=== PATIENT | female | born 1960 | race Caucasian/White ===

== ENCOUNTER 2017-08-04 11:15 | Emergency (ER) | payer MEDICAID ==
[2015-04-15 12:13] VITALS: Wt 60.3 kg
[~2017-08-04 11:15] MED LIST: ALBU2.5V36 IH; ALBU5SOL17 NEB; ALBU8.5H IH; AMLO-96 PO; AZIT-18 PO; BENZ100C4 PO; BUDE10.2 INH; BUSP15TA69 PO; CIPR-214 PO; CIPR-344 PO; CITA-145 PO; CYCL-277 PO; CYCL10TA29 PO; DIAZ-308 PO; DOCU-416 PO; FAMO20TA28 PO; GABA-490 PO; GUAI120L3 PO; GUAI600T57 PO; HYDR-4309 PO; HYDR2TAB74 PO; HYDR50CA47 PO; IBUP800T37 PO; IPRA4AER IH; KET10 PO; LAMO100T5 PO; LAMO50TA PO; LEVO-85 PO; LEVO750T27 PO; LISI2.5T60 PO; LITH300T18 PO; LOR5/325 PO; LORA-629 PO; METF-411 PO; METF-421 PO; NITR-105 PO; ONDA4TAB PO; OXYC-865 PO; PER PO; POLY17PO25 PO; PRED-1 PO; PRED20TA6 PO; PROM-110 PO; SERT-1 PO; SERT20OR6 PO; SULF-198 PO; TAMS0.4C25 PO; TRAM-420 PO; TRAZ-163 PO; [UNRECOGNIZED DRUG - OTHER]
--- NOTE | 2017-08-04 11:17 | ER Report ---
History and Physical Time Seen By MD: 11:17 Hx. of Stated Complaint: rash HPI/ROS 57 year old female received bug bites after staying in a local hotel x 10 days . bites raised itchy to bilateral arms and right lower extremity Remainder of the 14 system rev: Yes Allergies: Coded Allergies: coconut oil (Verified Allergy, Severe, Anaphylaxis, 10/19/15) Penicillins (Verified Allergy, Unknown, 10/19/15) guanfacine (Verified Allergy, Unknown, 10/19/15) naproxen (Verified Allergy, Unknown, 08/04/17) Uncoded Allergies: COCONUT (Allergy, Severe, ANAPHYLAXIS, 04/10/15) Home Meds Active Scripts Prednisone (PREDNISONE) 20 Mg Tablet, 40 MG PO DAILY for 5 Days, #10 TAB Prov:PO MUNROE 08/04/17 Hydrocortisone 2.5% Oint (HYDROCORTISONE 2.5% OINT) 453.6 Gm Oint...g., 453.6 GM TP BID for 7 Days, #1 TUBE Prov:PO MUNROE 08/04/17 Reported Medications Metformin Hcl (METFORMIN HCL) 500 Mg Tablet, 1 TAB PO BID, TAB 10/19/15 Albuterol Sulfate (ALBUTEROL SULFATE) 5 Mg/1 Ml Solution, 2.5 MG NEB 3-4XD 04/10/15 Citalopram Hydrobromide (CITALOPRAM HBR) 20 Mg Tablet, 40 MG PO QDAY, #5 TAB 04/10/15 Lamotrigine (LAMOTRIGINE) 100 Mg Tab.er.24, 100 MG PO QDAY 09/06/14 Budesonide/Formoterol Fumarate (SYMBICORT 160-4.5 MCG INHALER) 10.2 Gm Inh, 10.2 GM INH BID, INH 08/23/14 Amlodipine Besylate (AMLODIPINE BESYLATE) 5 Mg Tablet, 1 TAB PO QDAY, TAB 07/30/14 Discontinued Reported Medications Ciprofloxacin Hcl (CIPROFLOXACIN HCL) 500 Mg Tablet, 500 MG PO Q12H, #14 TAB 10/19/15 Tamsulosin Hcl (FLOMAX) 0.4 Mg Cap.er.24h, 0.4 MG PO BID, CAP 04/20/15 Discontinued Scripts Hydrocodone Bit/Acetaminophen (NORCO 5-325 TABLET) 1 Each Tablet, 1 EACH PO Q4- 6H Y for PAIN, #12 TAB Prov:PAULINA MCGEE IRRIGATION SYSTEM INSTALLER 10/19/15 Past Medical/Surgical History diabetic Hx Smoking: Yes (1ppd) Smoking Status: Current: Every Day Smoker Hx Substance Use Disorder: No Hx Alcohol Use: No Constitutional Vital Sign - Last 24 Hours 08/04/17 08/04/17 11:22 11:55 Temp 97.6 Pulse 106 97 Resp 16 16 B/P (MAP) 149/99 139/99 (112) Pulse Ox 93 93 O2 Delivery Room Air Room Air Physical Exam 57 year old female alert and oriented nad, shira, tm non reddened, , throat non reddened hrr lungs cta, bug bites red raised tonia arms and right leg , friend in room has the same Medical Decision Making ED Course/Re-evaluation ED Course Was offered IM injection of Solu-Medrol refused this. She has allergic reactions to all injections did take 40 of by mouth prednisone home with prescriptions follow PCP Re-evaluation Ambulatory to ER no acute distress prednisone 40 mg given any Decision to Disposition Date: Aug 04, 2017 Decision to Disposition Time: 11:34 Depart Departure Latest Vital Signs Vital Signs Date Time Temp Pulse Resp B/P (MAP) Pulse Ox O2 Delivery O2 Flow Rate FiO2 08/04/17 11:55 97 16 139/99 (112) 93 Room Air 08/04/17 11:22 97.6 Impression: Primary Impression: Bed bug bite Condition: Improved Disposition: HOME OR SELF-CARE Referrals: [facility] 1 Week New Scripts Prednisone (PREDNISONE) 20 Mg Tablet 40 MG PO DAILY for 5 Days, #10 TAB Prov: PO MUNROE 08/04/17 Hydrocortisone 2.5% Oint (HYDROCORTISONE 2.5% OINT) 453.6 Gm Oint...g. 453.6 GM TP BID for 7 Days, #1 TUBE Prov: PO MUNROE 08/04/17 Patient Instructions: Insect Bite or Sting (ED) Additional Instructions: Take medications as prescribed follow-up with your primary care physician PO MUNROE Aug 04, 2017 11:17
[2017-08-04] MEDS ORDERED: methylPREDNIS SUCC 125 MG/2ML IM ONE (11:30)
[2017-08-04] MEDS ORDERED: diphenhydrAMINE 25 MG CAP PO ONE (11:30)
[2017-08-04] MEDS ORDERED: PRED20TA6 PO (11:36)
[2017-08-04] MEDS ORDERED: HYDR453.8 TP (11:36)
[2017-08-04] MEDS ORDERED: predniSONE 10 MG TAB PO ONE (11:40)
[2017-08-04] MEDS ORDERED: predniSONE 20 MG TAB PO ONE (11:45)
[2017-08-04 11:55] VITALS: BP 139/99
== END 2017-08-04 11:58 | disposition home or self-care (01) ==
LOC: ER 11:25
DX: S40.862A Insect bite (nonvenomous) of left upper arm, initial encounter (principal); S40.861A Insect bite (nonvenomous) of right upper arm, initial encounter; S80.861A Insect bite (nonvenomous), right lower leg, initial encounter; W57.XXXA Bitten or stung by nonvenomous insect and other nonvenomous arthropods, initial encounter
CPT/HCPCS: 99283; J7512

== ENCOUNTER 2017-11-13 17:40 | Emergency (ER) | payer MEDICAID ==
[2015-04-15 12:13] VITALS: Wt 63.5 kg
[~2017-11-13 17:40] MED LIST changes: +AMLO-111 PO; -AMLO-96 PO; +HYDR453.8 TP; -METF-411 PO; -METF-421 PO; +METF-450 PO; +METF-452 PO; -TRAZ-163 PO; +TRAZ100T31 PO
--- NOTE | 2017-11-13 17:45 | ER Report ---
History and Physical Time Seen By MD: 17:45 HPI/ROS CHIEF COMPLAINT: Cramping in the right leg HISTORY OF PRESENT ILLNESS: This is a 57-year-old female presents to the emergency department for cramping in the right leg. Patient states over the last week she's had increased cramps in her right leg, saw her urologist today, he suggested coming to the ED for further evaluation. Patient did have renal surgery about 2 years ago with removal of her left kidney due to cancer. Patient states that she was drinking lots of electrolyte-containing drinks, then recently stopped drinking those and started increasing her water intake. Patient denies any other concerns. No nausea or vomiting. No chest pain shortness of breath. No headaches. No rashes. REVIEW OF SYSTEMS: Constitutional: No fever, no chills. Eyes: No discharge. ENT: No sore throat. Cardiovascular: No chest pain, no palpitations. Respiratory: No cough, no shortness of breath. Gastrointestinal: No abdominal pain, no vomiting. Genitourinary: No hematuria. Musculoskeletal: As above. Skin: No rashes. Neurological: No headache. Allergies: Coded Allergies: coconut oil (Verified Allergy, Severe, Anaphylaxis, 11/13/17) Penicillins (Verified Allergy, Unknown, 11/13/17) guanfacine (Verified Allergy, Unknown, 11/13/17) naproxen (Verified Allergy, Unknown, 11/13/17) Uncoded Allergies: COCONUT (Allergy, Severe, ANAPHYLAXIS, 04/10/15) Home Meds Active Scripts Lorazepam (LORAZEPAM) 0.5 Mg Tablet, 0.5 MG PO Q4-6H, #6 TAB 0 Refills Prov:THERESA WHITE PRODUCTION REPRODUCTION MANAGER-BC 11/13/17 Hydrocortisone 2.5% Oint (HYDROCORTISONE 2.5% OINT) 453.6 Gm Oint...g., 453.6 GM TP BID for 7 Days, #1 TUBE Prov:PO MUNROE APRN-C 08/04/17 Reported Medications Metformin Hcl (METFORMIN HCL) 500 Mg Tablet, 1 TAB PO BID, TAB 10/19/15 Albuterol Sulfate (ALBUTEROL SULFATE) 5 Mg/1 Ml Solution, 2.5 MG NEB 3-4XD 04/10/15 Citalopram Hydrobromide (CITALOPRAM HBR) 20 Mg Tablet, 40 MG PO QDAY, #5 TAB 04/10/15 Lamotrigine (LAMOTRIGINE) 100 Mg Tab.er.24, 100 MG PO QDAY 09/06/14 Budesonide/Formoterol Fumarate (SYMBICORT 160-4.5 MCG INHALER) 10.2 Gm Inh, 10.2 GM INH BID, INH 08/23/14 Amlodipine Besylate (AMLODIPINE BESYLATE) 5 Mg Tablet, 1 TAB PO QDAY, TAB 07/30/14 Discontinued Scripts Prednisone (PREDNISONE) 20 Mg Tablet, 40 MG PO DAILY for 5 Days, #10 TAB Prov:PO MUNROE Luz Marina LEMUS 08/04/17 Past Medical/Surgical History The patient has a past medical and surgical history of seizures, heart murmur, irregular heartbeat, hypertension, COPD, tuberculosis as a child, COPD, history of self catheters, left nephrectomy secondary to cancer, osteoarthritis, back pain, degenerative joint disease, wears glasses, [id number] diabetic, depression, anxiety, C-sections, appendectomy, left pinky finger surgery. Reviewed Nurses Notes: Yes Hx Smoking: Yes (1ppd) Smoking Status: Current: Every Day Smoker Hx Substance Use Disorder: No Hx Alcohol Use: No Constitutional Vital Sign - Last 24 Hours 11/13/17 11/13/17 11/13/17 11/13/17 17:45 17:47 17:55 18:00 Temp 98.1 Pulse 101 119 Resp 14 B/P (MAP) 144/84 144/84 (104) 156/84 (108) Pulse Ox 94 95 O2 Delivery Room Air 11/13/17 11/13/17 11/13/17 11/13/17 18:10 18:25 18:30 18:40 Pulse ? 92 B/P (MAP) ???/??? (8205) Pulse Ox 94 94 11/13/17 11/13/17 11/13/17 11/13/17 18:55 19:02 19:10 19:25 Pulse 87 87 93 B/P (MAP) 147/70 (95) Pulse Ox 98 96 92 Physical Exam General Appearance: The patient is alert, has no immediate need for airway p rotection and no signs of toxicity. Eyes: Pupils equal and round no pallor or injection. ENT, Mouth: Mucous membranes are moist. Respiratory: There are no retractions, lungs are clear to auscultation. Cardiovascular: Regular rate and rhythm, systolic murmur, no clicks or rubs. Gastrointestinal: Abdomen is soft and non tender, no masses, bowel sounds normal. Neurological: Alert and oriented 4. Moving all extremities. Following all commands. No focal neuro deficits. Skin: Warm and dry, no rashes. Musculoskeletal: Neck is supple non tender. Extremities small, intermittent muscular movements in the right lateral lower leg. CMS intact. DIFFERENTIAL DIAGNOSIS: After history and physical exam differential diagnosis was considered for electrolyte imbalance, lumbar back strain and nerve root irritation. Medical Decision Making Data Points Result Diagram: 11/13/17 1813 11/13/17 1813 Laboratory Hematology Test 11/13/17 18:13 Red Blood Count 5.62 M/uL (4.17-5.56) Mean Corpuscular Volume 90.7 fL (80.0-96.0) Mean Corpuscular Hemoglobin 32.2 pg (26.0-33.0) Mean Corpuscular Hemoglobin Concent 35.4 g/dL (32.0-36.0) Red Cell Distribution Width 13.0 % (11.5-14.5) Mean Platelet Volume 8.3 fL (7.2-11.1) Neutrophils (%) (Auto) 58.1 % (39.4-72.5) Lymphocytes (%) (Auto) 34.4 % (17.6-49.6) Monocytes (%) (Auto) 5.3 % (4.1-12.4) Eosinophils (%) (Auto) 1.1 % (0.4-6.7) Basophils (%) (Auto) 1.1 % (0.3-1.4) Nucleated RBC Relative Count (auto) 0.0 /100WBC Neutrophils # (Auto) 5.9 K/uL (2.0-7.4) Lymphocytes # (Auto) 3.5 K/uL (1.3-3.6) Monocytes # (Auto) 0.5 K/uL (0.3-1.0) Eosinophils # (Auto) 0.1 K/uL (0.0-0.5) Basophils # (Auto) 0.1 K/uL (0.0-0.1) Nucleated RBC Absolute Count (auto) 0.00 K/uL Sodium Level 139 mmol/L (137-145) Potassium Level 3.9 mmol/L (3.5-5.0) Chloride Level 103 mmol/L (98-107) Carbon Dioxide Level 22 mmol/L (22-31) Blood Urea Nitrogen 12 mg/dl (7-18) Creatinine 1.10 mg/dl (0.52-1.04) Glomerular Filtration Rate Calc 51.0 Random Glucose 257 mg/dl (75-110) Calcium Level 9.6 mg/dl (8.4-10.2) Magnesium Level 1.7 mg/dl (1.7-2.2) Total Bilirubin 0.5 mg/dl (0.2-1.3) Aspartate Amino Transf (AST/SGOT) 23 U/L (0-35) Alanine Aminotransferase (ALT/SGPT) 35 U/L (0-56) Alkaline Phosphatase 97 U/L (0-126) Total Protein 7.5 g/dl (6.3-8.2) Albumin 4.1 g/dl (3.5-5.0) Chemistry Test 11/13/17 18:13 White Blood Count 10.2 k/uL (4.5-11.0) Red Blood Count 5.62 M/uL (4.17-5.56) Hemoglobin 18.1 g/dL (12.0-16.0) Hematocrit 51.0 % (34.0-47.0) Mean Corpuscular Volume 90.7 fL (80.0-96.0) Mean Corpuscular Hemoglobin 32.2 pg (26.0-33.0) Mean Corpuscular Hemoglobin Concent 35.4 g/dL (32.0-36.0) Red Cell Distribution Width 13.0 % (11.5-14.5) Platelet Count 332 K/uL (150-450) Mean Platelet Volume 8.3 fL (7.2-11.1) Neutrophils (%) (Auto) 58.1 % (39.4-72.5) Lymphocytes (%) (Auto) 34.4 % (17.6-49.6) Monocytes (%) (Auto) 5.3 % (4.1-12.4) Eosinophils (%) (Auto) 1.1 % (0.4-6.7) Basophils (%) (Auto) 1.1 % (0.3-1.4) Nucleated RBC Relative Count (auto) 0.0 /100WBC Neutrophils # (Auto) 5.9 K/uL (2.0-7.4) Lymphocytes # (Auto) 3.5 K/uL (1.3-3.6) Monocytes # (Auto) 0.5 K/uL (0.3-1.0) Eosinophils # (Auto) 0.1 K/uL (0.0-0.5) Basophils # (Auto) 0.1 K/uL (0.0-0.1) Nucleated RBC Absolute Count (auto) 0.00 K/uL Glomerular Filtration Rate Calc 51.0 Calcium Level 9.6 mg/dl (8.4-10.2) Magnesium Level 1.7 mg/dl (1.7-2.2) Total Bilirubin 0.5 mg/dl (0.2-1.3) Aspartate Amino Transf (AST/SGOT) 23 U/L (0-35) Alanine Aminotransferase (ALT/SGPT) 35 U/L (0-56) Alkaline Phosphatase 97 U/L (0-126) Total Protein 7.5 g/dl (6.3-8.2) Albumin 4.1 g/dl (3.5-5.0) ED Course/Re-evaluation Clinical Indication for ER IV: Hydration, IV Access ED Course The patient was admitted to room. History of physical obtained. Differential diagnoses were considered. An IV was started. A 1 L normal saline bolus was given. H&H 18.1 and 51.0, likely delusional given the patient's history. Creatinine 1.10. Blood sugar 257. Patient was given a 0.5 mg IV dose of lorazep am. Patient states she is feeling much better, the muscle spasms have stopped. Labs were reviewed with patient. Patient is very anxious to go home now, she states she is feeling much better. I did sent the patient home with a prescription in for Ativan for the muscle spasms, I also encouraged her to follow up with her primary care provider for reevaluation. Patient expresses understanding and was discharged home. Decision to Disposition Date: Nov 13, 2017 Decision to Disposition Time: 19:30 Depart Departure Latest Vital Signs Vital Signs Date Time Temp Pulse Resp B/P (MAP) Pulse Ox O2 Delivery O2 Flow Rate FiO2 9/27/18 19:25 93 92 11/13/17 19:02 147/70 (95) 11/13/17 17:45 98.1 14 Room Air Impression: Primary Impression: Leg muscle spasm Condition: Improved Disposition: HOME OR SELF-CARE New Scripts Lorazepam (LORAZEPAM) 0.5 Mg Tablet 0.5 MG PO Q4-6H, #6 TAB 0 Refills Prov: THERESA WHITE 11/13/17 Patient Instructions: Muscle Spasm (ED) Additional Instructions: You can take 1 Ativan every 4-6 hours as needed for the muscle cramping. This is a limited supply so be sure to follow-up with your primary care provider within one week for reevaluation. I would also encourage her to follow up with [facility] to see if the root cause of the muscle spasms are related to the lower back. Be sure to drink plenty of water. Plenty of rest. Return to the emergency department for any other concerns or worsening symptoms. Problem Qualifiers Primary Impression: Leg muscle spasm Laterality: right Qualified Codes: M62.838 - Other muscle spasm THERESA WHITE-BC Nov 13, 2017 17:45
[2017-11-13] MEDS ORDERED: NS(*) 0.9% 1000 ML BAG 1,000 ML IV ONE (18:00)
[2017-11-13 18:19] LABS: PLATELET COUNT, AUTOMATED 332 K/uL (150-450)
[2017-11-13] MEDS ORDERED: LORazepam 2 MG/ML VIAL IVP ONE (18:40)
[2017-11-13 19:02] VITALS: BP 147/70
[2017-11-13] MEDS ORDERED: LORA-630 PO (19:32)
== END 2017-11-13 19:41 | disposition home or self-care (01) ==
LOC: ER 17:54
DX: M62.838 Other muscle spasm (principal)
CPT/HCPCS: 83735; 85025; 96374; 96375; 99284; J2060; J7030; 82040; 82247; 82310; 82374; 82435; 82565; 82947; 84075; 84132; 84155; 84295; 84450; 84460; 84520; 96361

== ENCOUNTER 2018-03-05 16:44 | Emergency (ER) | payer MEDICAID ==
[2015-04-15 12:13] VITALS: Wt 58.1 kg
[~2018-03-05 16:44] MED LIST changes: -AMLO-111 PO; +AMLO-125 PO; -HYDR-4309 PO; +HYDR-653 PO; +LORA-630 PO
--- NOTE | 2018-03-05 16:56 | ER Report ---
History and Physical Time Seen By MD: 16:55 HPI/ROS CHIEF COMPLAINT: Syncope HISTORY OF PRESENT ILLNESS: This is a 57-year-old female who presents to the emergency department for syncope. Patient states that she is concerned her blood pressure is high, she also had complaints of 2 syncopal episodes today, with "seizure-like activity", however these events happened this morning. Patient states that she also has had a headache for the past 3 or 4 days, she's also been heating the inside of her house with propane for the past 5 days. She has had chills, no chest pain, no shortness of breath. No nausea or vomiting. No fevers. No dysuria or diarrhea. Patient also states that she feels her blood pressure is elevated due to increased stress. REVIEW OF SYSTEMS: Constitutional: No fever, no chills. Eyes: No discharge. ENT: No sore throat. Cardiovascular: No chest pain, no palpitations. Respiratory: No cough, no shortness of breath. Gastrointestinal: No abdominal pain, no vomiting. Genitourinary: No hematuria. Musculoskeletal: No back pain. Skin: No rashes. Neurological: As above. Allergies: Coded Allergies: coconut oil (Verified Allergy, Severe, Anaphylaxis, 03/05/18) Penicillins (Verified Allergy, Unknown, 03/05/18) guanfacine (Verified Allergy, Unknown, 03/05/18) naproxen (Verified Allergy, Unknown, 03/05/18) Uncoded Allergies: COCONUT (Allergy, Severe, ANAPHYLAXIS, 04/10/15) Home Meds Active Scripts Metaxalone (SKELAXIN) 800 Mg Tablet, 800 MG PO TID, #12 TAB 0 Refills Prov:THERESA WHITE CLINIC PHYSICIAN-BC 03/05/18 Reported Medications Tamsulosin Hcl (FLOMAX) 0.4 Mg Cap.er.24h, 0.4 MG PO, CAP 03/05/18 Metformin Hcl (METFORMIN HCL) 500 Mg Tablet, 1 TAB PO BID, TAB 10/19/15 Discontinued Reported Medications Albuterol Sulfate (ALBUTEROL SULFATE) 5 Mg/1 Ml Solution, 2.5 MG NEB 3-4XD 04/10/15 Citalopram Hydrobromide (CITALOPRAM HBR) 20 Mg Tablet, 40 MG PO QDAY, #5 TAB 04/10/15 Lamotrigine (LAMOTRIGINE) 100 Mg Tab.er.24, 100 MG PO QDAY 09/06/14 Budesonide/Formoterol Fumarate (SYMBICORT 160-4.5 MCG INHALER) 10.2 Gm Inh, 10.2 GM INH BID, INH 08/23/14 Amlodipine Besylate (AMLODIPINE BESYLATE) 5 Mg Tablet, 1 TAB PO QDAY, TAB 07/30/14 Discontinued Scripts Lorazepam (LORAZEPAM) 0.5 Mg Tablet, 0.5 MG PO Q4-6H, #6 TAB 0 Refills Prov:CHRISTOPHERTHERESA Luz Marina CLINIC PHYSICIAN-BC 11/13/17 Hydrocortisone 2.5% Oint (HYDROCORTISONE 2.5% OINT) 453.6 Gm Oint...g., 453.6 GM TP BID for 7 Days, #1 TUBE Prov:PO MUNROE APRN-C 08/04/17 Past Medical/Surgical History The patient has a past medical and surgical history of seizures, heart murmur, irregular heartbeat, hypertension, COPD, tuberculosis as a child, COPD, history of self catheters, left nephrectomy secondary to cancer, osteoarthritis, back pain, degenerative joint disease, wears glasses, [id number] diabetic, depression, anxiety, C-sections, appendectomy, left pinky finger surgery. Reviewed Nurses Notes: Yes Hx Smoking: Yes (1ppd) Smoking Status: Current: Every Day Smoker Hx Substance Use Disorder: No Hx Alcohol Use: No Constitutional Vital Sign - Last 24 Hours 03/05/18 03/05/18 03/05/18 03/05/18 16:49 16:49 17:00 17:00 Temp 97.9 Pulse 79 Resp 20 B/P (MAP) 154/74 (100) 154/74 139/81 (100) Pulse Ox 93 O2 Delivery Room Air O2 Flow Rate 2.0 03/05/18 03/05/18 03/05/18 03/05/18 17:14 17:15 17:44 17:45 Pulse 79 70 Resp 14 22 B/P (MAP) 139/96 (110) 146/80 (102) Pulse Ox 97 97 03/05/18 03/05/18 03/05/18 03/05/18 18:00 18:14 18:15 18:30 Pulse 65 Resp 30 B/P (MAP) 141/82 (101) 165/80 (108) 151/74 (99) Pulse Ox 99 03/05/18 18:35 Pulse 55 Resp 14 Pulse Ox 99 Physical Exam General Appearance: The patient is alert, has no immediate need for airway protection and no signs of toxicity. Eyes: Pupils equal and round no pallor or injection. ENT, Mouth: Mucous membranes are moist. Respiratory: There are no retractions, lungs are clear to auscultation. Cardiovascular: Regular rate and rhythm. Gastrointestinal: Abdomen is soft and non tender, no masses, bowel sounds normal. Neurological: Alert and oriented 4. Moving all extremities. Following all commands. No focal neuro deficits. Skin: Warm and dry, no rashes. Musculoskeletal: Neck is supple non tender. Extremities are nontender, nonswollen and have full range of motion. DIFFERENTIAL DIAGNOSIS: After history and physical exam differential diagnosis was considered for headache including but not limited to subarachnoid hemor rhage, Carbon monoxide exposure, migraine headache, tension headache and infectious causes such as meningitis, pharyngitis and sinusitis. Medical Decision Making Data Points Result Diagram: 03/05/18 1720 03/05/18 1720 Laboratory Hematology Test 03/05/18 17:20 Red Blood Count 5.72 M/uL (4.17-5.56) Mean Corpuscular Volume 90.6 fL (80.0-96.0) Mean Corpuscular Hemoglobin 31.6 pg (26.0-33.0) Mean Corpuscular Hemoglobin Concent 34.8 g/dL (32.0-36.0) Red Cell Distribution Width 12.7 % (11.5-14.5) Mean Platelet Volume 8.6 fL (7.2-11.1) Neutrophils (%) (Auto) 60.9 % (39.4-72.5) Lymphocytes (%) (Auto) 30.6 % (17.6-49.6) Monocytes (%) (Auto) 6.4 % (4.1-12.4) Eosinophils (%) (Auto) 1.2 % (0.4-6.7) Basophils (%) (Auto) 0.9 % (0.3-1.4) Nucleated RBC Relative Count (auto) 0.1 /100WBC Neutrophils # (Auto) 6.8 K/uL (2.0-7.4) Lymphocytes # (Auto) 3.4 K/uL (1.3-3.6) Monocytes # (Auto) 0.7 K/uL (0.3-1.0) Eosinophils # (Auto) 0.1 K/uL (0.0-0.5) Basophils # (Auto) 0.1 K/uL (0.0-0.1) Nucleated RBC Absolute Count (auto) 0.01 K/uL Carboxyhemoglobin 7.9 % (< 5.0) Sodium Level 140 mmol/L (137-145) Potassium Level 4.4 mmol/L (3.5-5.0) Chloride Level 107 mmol/L (98-107) Carbon Dioxide Level 22 mmol/L (22-31) Blood Urea Nitrogen 11 mg/dl (7-18) Creatinine 1.00 mg/dl (0.52-1.04) Glomerular Filtration Rate Calc 56.9 Random Glucose 160 mg/dl (75-110) Calcium Level 10.0 mg/dl (8.4-10.2) Total Bilirubin 0.6 mg/dl (0.2-1.3) Aspartate Amino Transf (AST/SGOT) 25 U/L (0-35) Alanine Aminotransferase (ALT/SGPT) 35 U/L (0-56) Alkaline Phosphatase 124 U/L (0-126) Troponin I < 0.012 ng/ml Total Protein 7.5 g/dl (6.3-8.2) Albumin 4.3 g/dl (3.5-5.0) Chemistry Test 03/05/18 17:20 White Blood Count 11.1 k/uL (4.5-11.0) Red Blood Count 5.72 M/uL (4.17-5.56) Hemoglobin 18.0 g/dL (12.0-16.0) Hematocrit 51.8 % (34.0-47.0) Mean Corpuscular Volume 90.6 fL (80.0-96.0) Mean Corpuscular Hemoglobin 31.6 pg (26.0-33.0) Mean Corpuscular Hemoglobin Concent 34.8 g/dL (32.0-36.0) Red Cell Distribution Width 12.7 % (11.5-14.5) Platelet Count 329 K/uL (150-450) Mean Platelet Volume 8.6 fL (7.2-11.1) Neutrophils (%) (Auto) 60.9 % (39.4-72.5) Lymphocytes (%) (Auto) 30.6 % (17.6-49.6) Monocytes (%) (Auto) 6.4 % (4.1-12.4) Eosinophils (%) (Auto) 1.2 % (0.4-6.7) Basophils (%) (Auto) 0.9 % (0.3-1.4) Nucleated RBC Relative Count (auto) 0.1 /100WBC Neutrophils # (Auto) 6.8 K/uL (2.0-7.4) Lymphocytes # (Auto) 3.4 K/uL (1.3-3.6) Monocytes # (Auto) 0.7 K/uL (0.3-1.0) Eosinophils # (Auto) 0.1 K/uL (0.0-0.5) Basophils # (Auto) 0.1 K/uL (0.0-0.1) Nucleated RBC Absolute Count (auto) 0.01 K/uL Carboxyhemoglobin 7.9 % (< 5.0) Glomerular Filtration Rate Calc 56.9 Calcium Level 10.0 mg/dl (8.4-10.2) Total Bilirubin 0.6 mg/dl (0.2-1.3) Aspartate Amino Transf (AST/SGOT) 25 U/L (0-35) Alanine Aminotransferase (ALT/SGPT) 35 U/L (0-56) Alkaline Phosphatase 124 U/L (0-126) Troponin I < 0.012 ng/ml Total Protein 7.5 g/dl (6.3-8.2) Albumin 4.3 g/dl (3.5-5.0) EKG/Imaging EKG Interpretation 12 lead EKG: Time of EKG 1750. Rhythm: Normal sinus rhythm, ventricular rate 69 bpm. [place]: normal QRS: normal ST segments: No ST depression or elevation identified. Poor T-wave progres chris and the 1, V2. No significant changes from a 08/26/2012 EKG. Imaging Location: [facility] Patient: Thomas Finley : 1960 Visit/Account:[id number] Date of Sevice: 03/05/2018 EXAMINATION: Head CT without intravenous contrast HISTORY: Syncope and headache TECHNIQUE: Contiguous axial images were obtained from the skull base to the vertex without intravenous contrast. Sagittal and coronal reformatted images are also submitted. Dose Lowering Technique One of the following dose optimization techniques was utilized in the performance of this exam: Automated exposure control; adjustment of the mA and/or kV according to the patient's size; or use of an iterative reconstruction technique. Specific details can be referenced in the facility's radiology CT exam operational policy. COMPARISON: None. FINDINGS: Brain volume: Normal. Ventricles: Normal. Acute ischemic changes: None. Hemorrhage: None. Masses / edema: None. Blanco-white: Negative. White matter: Normal. Vessels: There are calcifications in the vertebral arteries bilaterally and in the carotid siphons Extra-axial: Negative. Calvarium / scalp: Negative. Skull base / visualized face: Negative. Visualized sinuses / orbits: Negative. IMPRESSION: Calcifications in the vertebral arteries bilaterally and in the carotid siphons otherwise unremarkable head CT without contrast Report Dictated By: Leticia Johnson MD at 03/05/2018 5:49 PM Report E-Signed By: Leticia Johnson MD at 03/05/2018 5:53 PM WSN:ELIA Location: [facility] Patient: Thomas Finley : 1960 Visit/Account:[id number] Date of Sevice: 03/05/2018 Exam type: CHEST PA LAT History: syncope Comparison: May 20, 2015. Findings: Chronic interstitial changes throughout the lungs are again seen and appear unchanged. No acute pulmonary consolidation is identified. Cardiac silhouette is normal in size. There are spondylotic changes of the thoracic spine. IMPRESSION: 1. Chronic initial changes throughout the lungs appear stable Report Dictated By: Leticia Johnson MD at 03/05/2018 5:48 PM Report E-Signed By: Leticia Johnson MD at 03/05/2018 5:49 PM WSN:ELIA ED Course/Re-evaluation Clinical Indication for ER IV: Hydration, IV Access ED Course The patient was admitted to room. A history of physical were obtained. Differential diagnoses were considered. An IV was started. A CBC, CMP were obtained. A carboxyhemoglobin was obtained. A 1 L normal saline bolus was given. A two-view chest x-ray and head CT were obtained.CBC showing to be PVCs 11.1, hemoglobin and hematocrit 18.0 and 51.8, chemistry showing glucose 160, negative troponin, carboxyhemoglobin 7.9. A CT of the brain was negative for any acute abnormalities. Two-view chest x-ray negative for any acute cardiopulmonary process. I reviewed the results with the patient. I did tell her that with the elevated carbon monoxide that this is likely causing her symptoms, patient does state she feels better after the continuous oxygen. She was also given 1000 mg by mouth acetaminophen. I did recommend staying longer for Oxygen therapy, however the patient wanted to go home. I did recommend that the patient and her not heat their house with propane heaters inside. They state they have a direct history fixed and now are not using propane. Patient has oxygen at home she will continue to wear her oxygen for the next 24-48 hours continuously, which he wears this at night. I did encourage the patient to follow-up with her primary care provider within one week for reevaluation. Return to the ER for any concerns or worsening symptoms. Patient expressed understanding was discharged home. Decision to Disposition Date: Mar 05, 2018 Decision to Disposition Time: 18:41 Depart Departure Latest Vital Signs Vital Signs Date Time Temp Pulse Resp B/P (MAP) Pulse Ox O2 Delivery O2 Flow Rate FiO2 03/05/18 18:35 55 14 99 03/05/18 18:30 151/74 (99) 03/05/18 17:00 2.0 03/05/18 16:49 97.9 Room Air Impression: Primary Impression: Carbon monoxide exposure Condition: Improved Disposition: HOME OR SELF-CARE New Scripts Metaxalone (SKELAXIN) 800 Mg Tablet 800 MG PO TID, #12 TAB 0 Refills Prov: THERESA WHITE Luz Marina CLINIC PHYSICIAN-BC 03/05/18 Patient Instructions: Carbon Monoxide Poisoning (ED) Additional Instructions: Please do not use propane to heat your house as this has caused a carbon monoxide exposure, subsequently ended up with a headache and uneasy feelings. When you go home please reapply your oxygen and use for the next 24-48 hours. You can use ibuprofen or Tylenol as needed for pain. Drink plenty of water. Return to the emergency department for any other concerns or worsening symptoms. Follow-up with your primary care provider within 5 days for reevaluation. THERESA WHITE CLINIC PHYSICIAN-BC Mar 05, 2018 16:56
[2018-03-05] MEDS ORDERED: TAMS0.4C25 PO (16:59)
[2018-03-05] MEDS ORDERED: NS(*) 0.9% 1000 ML BAG 1,000 ML IV ONE (17:07)
[2018-03-05 17:31] LABS: PLATELET COUNT, AUTOMATED 329 K/uL (150-450)
--- NOTE | 2018-03-05 17:54 | RADIOLOGY IMAGING REPORT ---
FACILITY: [facility] PATIENT NAME: Thomas Finley : 1960 MR: [id number] V: [id number] EXAM DATE: ORDERING PHYSICIAN: THERESA WHITE TECHNOLOGIST: [facility] Patient: Thomas Finley : 1960 Visit/Account:[id number] Date of Sevice: 03/05/2018 Exam type: CHEST PA LAT History: syncope Comparison: May 20, 2015. Findings: Chronic interstitial changes throughout the lungs are again seen and appear unchanged. No acute pulm onary consolidation is identified. Cardiac silhouette is normal in size. There are spondylotic nava ges of the thoracic spine. IMPRESSION: 1. Chronic initial changes throughout the lungs appear stable Report Dictated By: Leticia Johnson MD at 03/05/2018 5:48 PM Report E-Signed By: Leticia Johnson MD at 03/05/2018 5:49 PM WSN:[email or web address]
--- NOTE | 2018-03-05 17:57 | RADIOLOGY IMAGING REPORT ---
FACILITY: [facility] [place] PATIENT NAME: Thomas Finley : 1960 MR: [id number] V: [id number] EXAM DATE: ORDERING PHYSICIAN: THERESA WHITE TECHNOLOGIST: Location: [facility] [place] Patient: Thomas Finley : 1960 Visit/Account:[id number] Date of Sevice: 03/05/2018 EXAMINATION: Head CT without intravenous contrast HISTORY: Syncope and headache TECHNIQUE: Contiguous axial images were obtained from the skull base to the vertex without intraven ous contrast. Sagittal and coronal reformatted images are also submitted. Dose Lowering Technique One of the following dose optimization techniques was utilized in the performance of this exam: Autom ated exposure control; adjustment of the mA and/or kV according to the patient's size; or use of an i terative reconstruction technique. Specific details can be referenced in the facility's radiology C T exam operational policy. COMPARISON: None. FINDINGS: Brain volume: Normal. Ventricles: Normal. Acute ischemic changes: None. Hemorrhage: None. Masses / edema: None. Blanco-white: Negative. White matter: Normal. Vessels: There are calcifications in the vertebral arteries bilaterally and in the carotid siphons Extra-axial: Negative. Calvarium / scalp: Negative. Skull base / visualized face: Negative. Visualized sinuses / orbits: Negative. IMPRESSION: Calcifications in the vertebral arteries bilaterally and in the carotid siphons otherwise unremarkabl e head CT without contrast Report Dictated By: Leticia Johnson MD at 03/05/2018 5:49 PM Report E-Signed By: Leticia Johnson MD at 03/05/2018 5:53 PM WSN:[email or web address]
--- NOTE | 2018-03-05 17:58 | EKG ---
FACILITY: [facility] [place] PATIENT NAME: JAZMYN THORNTON : [id number] MR: [id number] V: [id number] EXAM DATE: ORDERING PHYSICIAN: THERESA WHITE TECHNOLOGIST: Test Reason : Syncope Blood Pressure : / mmHG Vent. Rate : 069 BPM Atrial Rate : 069 BPM P-R Int : 150 ms QRS Dur : 072 ms QT Int : 430 ms P-R-T Axes : 068 065 066 degrees QTc Int : 460 ms Sinus rhythm Probable left atrial enlargement Possible previous anterior infarct Nonspecific ST findings anterior leads Fairly similar to previous EKGs Abnormal ECG Confirmed by MEG WOLF ([id number]) on 03/06/2018 3:16:47 AM Referred By: Confirmed By:MEG WOLF
[2018-03-05] MEDS ORDERED: ACETAMINOPHEN 500 MG TAB PO ONE (18:05)
[2018-03-05 18:30] VITALS: BP 151/74
[2018-03-05] MEDS ORDERED: META800T18 PO (18:43)
== END 2018-03-05 18:51 | disposition home or self-care (01) ==
LOC: ER 17:00
DX: T58.91XA Toxic effect of carbon monoxide from unspecified source, accidental (unintentional), initial encounter (principal)
CPT/HCPCS: 70450; 71046; 82375; 84484; 85025; 93005; 96360; 99284; J7030; 82040; 82247; 82310; 82374; 82435; 82565; 82947; 84075; 84132; 84155; 84295; 84450; 84460; 84520

== ENCOUNTER 2018-06-05 22:58 | Emergency (ER) | payer MEDICAID ==
[2015-04-15 12:13] VITALS: Wt 63.5 kg
[~2018-06-05 22:58] MED LIST changes: +META800T18 PO
--- NOTE | 2018-06-05 23:15 | ER Report ---
History and Physical Time Seen By MD: 23:15 Hx. of Stated Complaint: PATIENT STARTED HAVING PAIN A SHARP PAIN IN STERNAL AREA ABOUT 2HOURS AGO, PATIENT HAVING SHORTNESS OF BREATH AND NAUSEA AND VOMITING. PAIN FELT SIMILAR TO HEART BURN WHEN IT FIRST STARTED, SHE TOOK PEPTO, PROTONIX, BAKING SODA. HPI/ROS CHIEF COMPLAINT: Sternal area pain, nausea with vomiting as well as some shortness of breath. HISTORY OF PRESENT ILLNESS: This is a 58-year-old female. She started having some sharp pain in the epigastric and sternal area. This was associated with nausea and vomiting and a feeling like heartburn. Followed by some shortness of breath. She tried taking some Pepto, Protonix, and baking soda but ended up throwing these up. Denies any other recent problems other than some urinary problems that have been fairly chronic for her off-and-on. History of urinary tract infections. Still having heartburn like symptoms. Denies any fevers or chills. No pain in her back. Has had normal bowel movements recently. She feels like there might be a little bump just between the xiphoid and epigastric area that is tender to palpation. Allergies: Coded Allergies: coconut oil (Verified Allergy, Severe, Anaphylaxis, 06/05/18) Penicillins (Verified Allergy, Unknown, 06/05/18) guanfacine (Verified Allergy, Unknown, 06/05/18) naproxen (Verified Allergy, Unknown, 06/05/18) Uncoded Allergies: COCONUT (Allergy, Severe, ANAPHYLAXIS, 04/10/15) Home Meds Active Scripts Ranitidine Hcl (ZANTAC) 150 Mg Tablet, 150 MG PO BID, #60 TAB 0 Refills Prov:MICHAELA MERCEDES MD 06/06/18 Sulfamethoxazole/Trimet 800-160 Mg Tab (BACTRIM DS TABLET) 1 Each Tablet, 1 TAB PO Q12H for 5 Days, #10 TAB 0 Refills Prov:MICHAELA MERCEDES MD 06/06/18 Hydrocodone Bit/Acetaminophen (HYDROCODON-ACETAMINOPHEN 5-325) 1 Each Tablet, 1 EACH PO Q4H PRN for PAIN, #12 TAB 0 Refills Prov:MICHAELA MERCEDES MD 06/06/18 Promethazine Hcl (PROMETHAZINE HCL) 25 Mg Tablet, 25 MG PO Q8H PRN for NAUSEA/VOMITING, #20 TAB 0 Refills Prov:MICHAELA MERCEDES MD 06/06/18 Reported Medications Tamsulosin Hcl (FLOMAX) 0.4 Mg Cap.er.24h, 0.4 MG PO, CAP 03/05/18 Metformin Hcl (METFORMIN HCL) 500 Mg Tablet, 1 TAB PO BID, TAB 10/19/15 Discontinued Scripts Metaxalone (SKELAXIN) 800 Mg Tablet, 800 MG PO TID, #12 TAB 0 Refills Prov:THERESA [employer]ITE [employer]-BC 03/05/18 Reviewed Nurses Notes: Yes Hx Smoking: Yes (1ppd) Smoking Status: Current: Every Day Smoker Hx Substance Use Disorder: No Hx Alcohol Use: No Constitutional Vital Sign - Last 24 Hours 06/05/18 06/05/18 06/05/18 06/05/18 23:04 23:13 23:28 23:30 Pulse 104 99 90 Resp 24 17 9 B/P (MAP) 174/100 137/82 (100) Pulse Ox 93 94 93 O2 Delivery Room Air 06/05/18 06/05/18 06/06/18 06/06/18 23:43 23:58 00:13 00:28 Pulse 93 ??? 86 85 Resp 24 Pulse Ox 90 93 94 92 06/06/18 06/06/18 06/06/18 06/06/18 00:30 00:43 00:58 01:33 Pulse ??? 80 ??? B/P (MAP) 143/74 (97) Pulse Ox 94 93 91 06/06/18 01:47 B/P (MAP) 140/83 (102) Physical Exam General Appearance: The patient is alert. No acute distress. Eyes: Pupils are equal, round. No pallor, injection or icterus. ENT: Mucous membranes are moist. Normal oral mucosa. Posterior oropharynx is normal. Neck: Supple and non tender. Respiratory: Lungs are clear to auscultation. There are no retractions or accessory muscle use. Cardiovascular: Regular rate and rhythm. No murmurs, gallops or rubs. Normal capillary refill. Gastrointestinal: Abdomen is soft, there is some discomfort in the epigastric area. Very slight amount of swelling over the xiphoid process and this is the main area where she is having pain. Nondistended. No rebound or guarding. Normal active bowel sounds. No costovertebral angle tenderness with percussion. Neurological: Alert and oriented x3. No focal neurologic deficits Skin: Warm and dry. No rashes. Musculoskeletal: Extremities are nontender. No tenderness in palpation of the cervical, thoracic and lumbar spine. DIFFERENTIAL DIAGNOSIS: After history and physical exam, differential diagnosis was considered for chest pain and epigastric pain including but not limited to myocardial ischemia, pancreatitis, pulmonary embolus, chest wall pain, pleural inflammation and pulmonary infectious causes. Also with urinary symptoms recently with history of frequent urinary tract infections, a stone progression of symptoms could be urinary infection causing nausea and vomiting and subsequent symptoms Medical Decision Making Data Points Result Diagram: 06/05/18 2336 06/05/18 2336 Laboratory Hematology Test 06/05/18 23:36 06/06/18 01:37 Red Blood Count 5.37 M/uL (4.17-5.56) Mean Corpuscular Volume 92.7 fL (80.0-96.0) Mean Corpuscular Hemoglobin 31.3 pg (26.0-33.0) Mean Corpuscular Hemoglobin Concent 33.8 g/dL (32.0-36.0) Red Cell Distribution Width 12.7 % (11.5-14.5) Mean Platelet Volume 8.9 fL (7.2-11.1) Neutrophils (%) (Auto) 79.8 % (39.4-72.5) Lymphocytes (%) (Auto) 13.7 % (17.6-49.6) Monocytes (%) (Auto) 5.3 % (4.1-12.4) Eosinophils (%) (Auto) 0.5 % (0.4-6.7) Basophils (%) (Auto) 0.7 % (0.3-1.4) Nucleated RBC Relative Count (auto) 0.0 /100WBC Neutrophils # (Auto) 13.7 K/uL (2.0-7.4) Lymphocytes # (Auto) 2.3 K/uL (1.3-3.6) Monocytes # (Auto) 0.9 K/uL (0.3-1.0) Eosinophils # (Auto) 0.1 K/uL (0.0-0.5) Basophils # (Auto) 0.1 K/uL (0.0-0.1) Nucleated RBC Absolute Count (auto) 0.01 K/uL Sodium Level 136 mmol/L (137-145) Potassium Level 4.2 mmol/L (3.5-5.0) Chloride Level 100 mmol/L (98-107) Carbon Dioxide Level 25 mmol/L (22-31) Blood Urea Nitrogen 14 mg/dl (7-18) Creatinine 1.10 mg/dl (0.52-1.04) Glomerular Filtration Rate Calc 50.8 Random Glucose 266 mg/dl (75-110) Calcium Level 10.5 mg/dl (8.4-10.2) Total Bilirubin 0.3 mg/dl (0.2-1.3) Aspartate Amino Transf (AST/SGOT) 22 U/L (0-35) Alanine Aminotransferase (ALT/SGPT) 25 U/L (0-56) Alkaline Phosphatase 148 U/L (0-126) Troponin I 0.030 ng/ml Total Protein 7.8 g/dl (6.3-8.2) Albumin 4.4 g/dl (3.5-5.0) Amylase Level 174 U/L (0-110) Lipase 102 U/L (23-300) Urine Color Red Urine Clarity Cloudy Urine pH 7.0 pH (4.8-9.5) Urine Specific [place] 1.006 Urine Protein Negative mg/dL (NEGATIVE) Urine Glucose (UA) Negative mg/dL (NEGATIVE) Urine Ketones Negative mg/dL (NEGATIVE) Urine Blood Negative (NEGATIVE) Urine Nitrite Positive (NEGATIVE) Urine Bilirubin Negative (NEGATIVE) Urine Urobilinogen Negative mg/dL (0.2-1.9) Urine Leukocyte Esterase Negative (NEGATIVE) Urine RBC <1 /HPF (0-2/HPF) Urine WBC 2 /HPF (0-5/HPF) Urine Squamous Epithelial Cells Many /LPF (</=FEW) Urine Amorphous Crystals Few /HPF Urine Bacteria Moderate /HPF (NONE-FEW) Urine Mucus Few /HPF (NONE-FEW) Chemistry Test 06/05/18 23:36 06/06/18 01:37 White Blood Count 17.2 k/uL (4.5-11.0) Red Blood Count 5.37 M/uL (4.17-5.56) Hemoglobin 16.8 g/dL (12.0-16.0) Hematocrit 49.8 % (34.0-47.0) Mean Corpuscular Volume 92.7 fL (80.0-96.0) Mean Corpuscular Hemoglobin 31.3 pg (26.0-33.0) Mean Corpuscular Hemoglobin Concent 33.8 g/dL (32.0-36.0) Red Cell Distribution Width 12.7 % (11.5-14.5) Platelet Count 308 K/uL (150-450) Mean Platelet Volume 8.9 fL (7.2-11.1) Neutrophils (%) (Auto) 79.8 % (39.4-72.5) Lymphocytes (%) (Auto) 13.7 % (17.6-49.6) Monocytes (%) (Auto) 5.3 % (4.1-12.4) Eosinophils (%) (Auto) 0.5 % (0.4-6.7) Basophils (%) (Auto) 0.7 % (0.3-1.4) Nucleated RBC Relative Count (auto) 0.0 /100WBC Neutrophils # (Auto) 13.7 K/uL (2.0-7.4) Lymphocytes # (Auto) 2.3 K/uL (1.3-3.6) Monocytes # (Auto) 0.9 K/uL (0.3-1.0) Eosinophils # (Auto) 0.1 K/uL (0.0-0.5) Basophils # (Auto) 0.1 K/uL (0.0-0.1) Nucleated RBC Absolute Count (auto) 0.01 K/uL Glomerular Filtration Rate Calc 50.8 Calcium Level 10.5 mg/dl (8.4-10.2) Total Bilirubin 0.3 mg/dl (0.2-1.3) Aspartate Amino Transf (AST/SGOT) 22 U/L (0-35) Alanine Aminotransferase (ALT/SGPT) 25 U/L (0-56) Alkaline Phosphatase 148 U/L (0-126) Troponin I 0.030 ng/ml Total Protein 7.8 g/dl (6.3-8.2) Albumin 4.4 g/dl (3.5-5.0) Amylase Level 174 U/L (0-110) Lipase 102 U/L (23-300) Urine Color Red Urine Clarity Cloudy Urine pH 7.0 pH (4.8-9.5) Urine Specific [place] 1.006 Urine Protein Negative mg/dL (NEGATIVE) Urine Glucose (UA) Negative mg/dL (NEGATIVE) Urine Ketones Negative mg/dL (NEGATIVE) Urine Blood Negative (NEGATIVE) Urine Nitrite Positive (NEGATIVE) Urine Bilirubin Negative (NEGATIVE) Urine Urobilinogen Negative mg/dL (0.2-1.9) Urine Leukocyte Esterase Negative (NEGATIVE) Urine RBC <1 /HPF (0-2/HPF) Urine WBC 2 /HPF (0-5/HPF) Urine Squamous Epithelial Cells Many /LPF (</=FEW) Urine Amorphous Crystals Few /HPF Urine Bacteria Moderate /HPF (NONE-FEW) Urine Mucus Few /HPF (NONE-FEW) Urinalysis Test 06/06/18 01:37 Urine Color Red Urine Clarity Cloudy Urine pH 7.0 pH (4.8-9.5) Urine Specific [place] 1.006 Urine Protein Negative mg/dL (NEGATIVE) Urine Glucose (UA) Negative mg/dL (NEGATIVE) Urine Ketones Negative mg/dL (NEGATIVE) Urine Blood Negative (NEGATIVE) Urine Nitrite Positive (NEGATIVE) Urine Bilirubin Negative (NEGATIVE) Urine Urobilinogen Negative mg/dL (0.2-1.9) Urine Leukocyte Esterase Negative (NEGATIVE) Urine RBC <1 /HPF (0-2/HPF) Urine WBC 2 /HPF (0-5/HPF) Urine Squamous Epithelial Cells Many /LPF (</=FEW) Urine Amorphous Crystals Few /HPF Urine Bacteria Moderate /HPF (NONE-FEW) Urine Mucus Few /HPF (NONE-FEW) EKG/Imaging EKG Interpretation 12 lead EKG: Rhythm: Sinus tachycardia, rate 103 [place]: normal QRS: normal ST segments: normal Imaging CHEST: Indication: Cough and epigastric pain. Technique: Frontal and lateral views were obtained. Comparison: 03/05/2018 Skeletal and soft tissue structures: There are chronic degenerative changes in the thoracic spine. No acute deformity. Heart and mediastinum: Within normal limits. Lung villalba: Well-expanded. Scattered tiny granulomas are present. No focal consolidation or volume loss is identified. Pleural spaces: Unremarkable. Impression: No acute process or significant change. Report Dictated By: Mahad Brink MD at 06/06/2018 12:21 AM ED Course/Re-evaluation Clinical Indication for ER IV: Hydration, IV Access ED Course Labs show an elevated white blood cell count. Urinalysis shows changes that could represent infection as well and a culture will be obtained. Troponin negative. Metabolic panel fairly unremarkable. She did have a GI cocktail that helped symptoms a little bit.. Phenergan injection for nausea was successful. After 2 attempts at IVs, the patient refused any further IVs so lab was drawn with a butterfly. Did offer CT scan however that would require an IV and the patient would prefer not have this done. We'll go ahead and start her on Bactrim DS. Started her on ranitidine and give her some Phenergan for nausea and she will follow-up with her primary care provider. Decision to Disposition Date: Jun 06, 2018 Decision to Disposition Time: 01:35 Depart Departure Latest Vital Signs Vital Signs Date Time Temp Pulse Resp B/P (MAP) Pulse Ox O2 Delivery O2 Flow Rate FiO2 06/06/18 01:47 140/83 (102) 06/06/18 01:33 ??? 91 06/05/18 23:43 24 06/05/18 23:04 Room Air Impression: Primary Impression: Epigastric abdominal pain Additional Impression: Nausea & vomiting Condition: Improved Disposition: HOME OR SELF-CARE New Scripts Ranitidine Hcl (ZANTAC) 150 Mg Tablet 150 MG PO BID, #60 TAB 0 Refills Prov: MICHAELA MERCEDES MD 06/06/18 Sulfamethoxazole/Trimet 800-160 Mg Tab (BACTRIM DS TABLET) 1 Each Tablet 1 TAB PO Q12H for 5 Days, #10 TAB 0 Refills Prov: MICHAELA MERCEDES MD 06/06/18 Hydrocodone Bit/Acetaminophen (HYDROCODON-ACETAMINOPHEN 5-325) 1 Each Tablet 1 EACH PO Q4H PRN for PAIN, #12 TAB 0 Refills Prov: MICHAELA MERCEDES MD 06/06/18 Promethazine Hcl (PROMETHAZINE HCL) 25 Mg Tablet 25 MG PO Q8H PRN for NAUSEA/VOMITING, #20 TAB 0 Refills Prov: MICHAELA MERCEDES MD 06/06/18 Patient Instructions: Acute Nausea and Vomiting (ED), Epigastric Pain (ED), Urinary Tract Infection in Women (ED) Additional Instructions: Take the antibiotic Bactrim DS twice a day for 5 days. Follow-up with the [facility] this week for re-evaluation. Take Ranitidine 150mg twice a day for acid reflux. Phenergan 25mg every 6 hours as needed for nausea or vomiting. Lortab 5/325, one every 6 hours as needed for pain. Problem Qualifiers Additional Impression: Nausea & vomiting Vomiting type: unspecified Vomiting Intractability: non-intractable Qualified Codes: R11.2 - Nausea with vomiting, unspecified MICHAELA MERCEDES MD Jun 05, 2018 23:15
[2018-06-05] MEDS ORDERED: PROMETHAZINE 25 MG/ML 1 ML AMP IM ONE (23:25)
[2018-06-05 23:57] LABS: PLATELET COUNT, AUTOMATED 308 K/uL (150-450)
[2018-06-06] MEDS ORDERED: LIDOCAINE 2% VISC SLN 15ML UDC PO ONE (00:20)
[2018-06-06] MEDS ORDERED: ATRO/SCOPOL/HYOSCY/PB 5 ML ELX PO ONE (00:20)
[2018-06-06] MEDS ORDERED: MAG HYD/AL HYD/SIMETH 30ML UDC PO ONE (00:20)
--- NOTE | 2018-06-06 00:29 | RADIOLOGY IMAGING REPORT ---
FAC[place] [facility] [place]IENT NAME: Tohmas Finley : 1960 MR: [id number] V: [id number] EXAM DATE: ORDERING PHYSICIAN: MICHAELA MERCEDES TECHNOLOGIST: Location[place] [facility] [place] Patient: Thomas Finley : 1960 Visit/Account:[id number] Date of Sevice: 06/05/2018 CHEST: Indication: Cough and epigastric pain. Technique: Frontal and lateral views were obtained. Comparison: 03/05/2018 Skeletal and soft tissue structures: There are chronic degenerative changes in the thoracic spine. No acute deformity. Heart and mediastinum: Within normal limits. Lung villalba: Well-expanded. Scattered tiny granulomas are present. No focal consolidation or volume l oss is identified. Pleural spaces: Unremarkable. Impression: No acute process or significant change. Report Dictated By: Mahad Brink MD at 06/06/2018 12:21 AM Report E-Signed By: Mahad Brink MD at 06/06/2018 12:24 AM WSN:[id number]
[2018-06-06] MEDS ORDERED: ACET/HYDROC 5/325MG TH ER ONLY 2 TAB/BOTTLE PO ONE (01:35)
[2018-06-06] MEDS ORDERED: TRIMETH/SULFA DS 160-800MG TAB PO ONE (01:35)
[2018-06-06] MEDS ORDERED: APAP/HYDROCODONE 325/5 TAB PO ONE (01:35)
[2018-06-06] MEDS ORDERED: RANITIDINE HCL 150 MG TAB PO ONE (01:35)
[2018-06-06] MEDS ORDERED: LOR5/325 PO (01:36)
[2018-06-06] MEDS ORDERED: PROM-110 PO (01:36)
[2018-06-06] MEDS ORDERED: SULF-198 PO (01:36)
[2018-06-06 01:47] VITALS: BP 140/83
[2018-06-06] MEDS ORDERED: RANI-366 PO (02:11)
--- NOTE | 2018-06-06 05:28 | EKG ---
FACILITY: [facility] PATIENT NAME: JAZMYN THORNTON : [id number] MR: [id number] V: [id number] EXAM DATE: ORDERING PHYSICIAN: MICHAELA MERCEDES TECHNOLOGIST: AMANDA Test Reason : CHEST PAIN Blood Pressure : / mmHG Vent. Rate : 103 BPM Atrial Rate : 103 BPM P-R Int : 158 ms QRS Dur : 080 ms QT Int : 350 ms P-R-T Axes : 072 065 078 degrees QTc Int : 458 ms Sinus tachycardia Anteroseptal infarct (cited on or before 05-JUN-2018) Abnormal ECG When compared with ECG of 05-MAR-2018 17:50, No significant change was found Confirmed by Raulito Canales ([id number]) on 06/06/2018 6:30:38 AM Referred By: Confirmed By:Raulito Rogel
== END 2018-06-06 02:09 | disposition home or self-care (01) ==
LOC: ER 23:16
DX: R10.13 Epigastric pain (principal); R11.2 Nausea with vomiting, unspecified
CPT/HCPCS: 36415; 71046; 81001; 82150; 83690; 84484; 85025; 87088; 93005; 96372; 99284; J2550; 82040; 82247; 82310; 82374; 82435; 82565; 82947; 84075; 84132; 84155; 84295; 84450; 84460; 84520